=== PATIENT | male | born 1960 | race African-American/Black ===

== ENCOUNTER 2017-05-05 16:27 | Emergency (ER) | payer OTHER, BC ==
[2017-05-05] MEDS ORDERED: NORMAL SALINE 1000 ML 1,000 ML IV ONE (16:54)
--- NOTE | 2017-05-05 16:57 | ER Document Report ---
ED Medical Screen (RME) - General Chief Complaint: High Blood Sugar Stated Complaint: BLOOD PRESSURE ISSUE, DIZZY Time Seen by Provider: 05/05/17 16:54 Mode of Arrival: Ambulatory Information source: Patient TRAVEL OUTSIDE OF THE [place] IN LAST 30 DAYS: No - HPI Patient complains to provider of: elevated BS Onset: Other - Pt has h/o DM but curretnly not on insulin -- [facility] and sent here for evaluation of elevated BS. - Related Data Allergies/Adverse Reactions: No Known Allergies Allergy (Verified 05/05/17 16:28) Past Medical History - Social History Chew tobacco use (# tins/day): No Frequency of alcohol use: Occasional Drug Abuse: None - Past Medical History Cardiac Medical History: Reports: Hx Hypertension - meds x 6 months Denies: Hx Coronary Artery Disease, Hx Heart Attack Pulmonary Medical History: Denies: Hx Asthma, Hx Bronchitis, Hx COPD, Hx Pneumonia Neurological Medical History: Denies: Hx Cerebrovascular Accident, Hx Seizures Renal/ Medical History: Denies: Hx Peritoneal Dialysis Musculoskeltal Medical History: Denies Hx Arthritis Past Surgical History: Denies: Hx Pacemaker - Immunizations Hx Diphtheria, Pertussis, Tetanus Vaccination: No Physical Exam - Vital signs Vitals: Temp Pulse Resp BP Pulse Ox 98.5 F 68 12 118/80 98 05/05/17 16:41 05/05/17 16:41 05/05/17 16:41 05/05/17 16:41 05/05/17 16:41 Course - Vital Signs Vital signs: Temp Pulse Resp BP Pulse Ox 98.5 F 68 12 118/80 98 05/05/17 16:41 05/05/17 16:41 05/05/17 16:41 05/05/17 16:41 05/05/17 16:41
[2017-05-05 17:30] LABS: ABSOLUTE BASOPHILS # (AUTO) 0.1 10^3/uL (0.0-0.2); ABSOLUTE EOSINOPHILS # (AUTO) 0.1 10^3/uL (0.0-0.6); ABSOLUTE LYMPHOCYTES (AUTO) 1.7 10^3/uL (0.5-4.7); ABSOLUTE MONOCYTES (AUTO) 0.6 10^3/uL (0.1-1.4); ABSOLUTE NEUT (AUTO) 3.9 10^3/uL (1.7-8.2); BASOPHILS % (AUTO) 0.9 % (0-2); EOSINOPHILS % (AUTO) 1.8 % (0-6); HEMATOCRIT 42.7 % (37.9-51.0); LYMPHOCYTES % (AUTO) 26.8 % (13-45); MEAN CORPUSCULAR HEMOGLOBIN 28.3 pg (27.0-33.4); MEAN CORPUSCULAR HGB CONC 32.7 g/dL (32.0-36.0); MEAN CORPUSCULAR VOLUME 87 fl (80-97); MONOCYTES % (AUTO) 9.4 % (3-13); PLATELET COUNT 253 10^3/uL (150-450); RED BLOOD COUNT 4.93 10^6/uL (4.35-5.55); RED CELL DISTRIBUTION WIDTH 12.9 % (11.5-14.0); SEGMENTED NEUTROPHILS % (AUTO) 61.1 % (42-78); TOTAL CELLS COUNTED % (AUTO) 100 %; WHITE BLOOD COUNT 6.4 10^3/uL (4.0-10.5)
[2017-05-05 17:41] LABS: ALANINE AMINOTRANSFERASE 40 U/L (21-72); ALBUMIN 4.2 g/dL (3.5-5.0); ALKALINE PHOSPHATASE 106 U/L (38-126); ANION GAP 10 (5-19); ASPARTATE AMINO TRANSFERASE 17 U/L (17-59); BILIRUBIN,DIRECT 0.3 mg/dL (0.0-0.4); BILIRUBIN,TOTAL 0.3 mg/dL (0.2-1.3); BLOOD UREA NITROGEN 14 mg/dL (7-20); CALCIUM 8.9 mg/dL (8.4-10.2); CARBON DIOXIDE 27 mmol/L (22-30); CHLORIDE 98 mmol/L (98-107); GLUCOSE 382 mg/dL (75-110); POTASSIUM 4.4 mmol/L (3.6-5.0); SODIUM 135.1 mmol/L (137-145); TOTAL PROTEIN 6.9 g/dL (6.3-8.2)
[2017-05-05 17:45] LABS: APPEARANCE,URINE CLEAR; BILIRUBIN,URINE NEGATIVE (NEGATIVE); COLOR,URINE STRAW; GLUCOSE, URINE >=500 mg/dL (NEGATIVE); KETONES,URINE 20 mg/dL (NEGATIVE); LEUKOCYTE ESTERASE,URINE NEGATIVE (NEGATIVE); NITRITE,URINE NEGATIVE (NEGATIVE); PROTEIN,URINE NEGATIVE (NEGATIVE); URINE SPECIFIC GRAVITY 1.032; UROBILINOGEN,URINE NEGATIVE mg/dL (<2.0)
[2017-05-05] MEDS ORDERED: METFORMIN HCL 500 MG TABLET PO ONE (19:00)
--- NOTE | 2017-05-05 19:05 | ER Document Report ---
ED General - General Chief Complaint: High Blood Sugar Stated Complaint: BLOOD PRESSURE ISSUE, DIZZY Time Seen by Provider: 05/05/17 16:54 Mode of Arrival: Ambulatory TRAVEL OUTSIDE OF THE [place] IN LAST 30 DAYS: No - Related Data Allergies/Adverse Reactions: No Known Allergies Allergy (Verified 05/05/17 16:28) Past Medical History - General Information source: Patient - Social History Smoking Status: Never Smoker Chew tobacco use (# tins/day): No Frequency of alcohol use: Occasional Drug Abuse: None Patient has suicidal ideation: No Patient has homicidal ideation: No - Past Medical History Cardiac Medical History: Reports: Hx Hypertension - meds x 6 months Denies: Hx Coronary Artery Disease, Hx Heart Attack Pulmonary Medical History: Denies: Hx Asthma, Hx Bronchitis, Hx COPD, Hx Pneumonia Neurological Medical History: Denies: Hx Cerebrovascular Accident, Hx Seizures Endocrine Medical History: Reports: Hx Diabetes Mellitus Type 2 - recent Renal/ Medical History: Denies: Hx Peritoneal Dialysis Musculoskeltal Medical History: Denies Hx Arthritis Past Surgical History: Reports: Hx Bowel Surgery - hernia repair. Denies: Hx Pacemaker - Immunizations Hx Diphtheria, Pertussis, Tetanus Vaccination: No Physical Exam - Vital signs Vitals: Temp Pulse Resp BP Pulse Ox 98.5 F 68 12 118/80 98 05/05/17 16:41 05/05/17 16:41 05/05/17 16:41 05/05/17 16:41 05/05/17 16:41 Course - Vital Signs Vital signs: Temp Pulse Resp BP Pulse Ox 98.5 F 68 12 118/80 98 05/05/17 16:41 05/05/17 16:41 05/05/17 16:41 05/05/17 16:41 05/05/17 16:41 - Laboratory Result Diagrams: 05/05/17 17:07 05/05/17 17:07 Laboratory results interpreted by me: 05/05/17 05/05/17 17:07 17:22 Sodium 135.1 L Glucose 382 H Urine Glucose (UA) >=500 H Urine Ketones 20 H Discharge - Discharge Clinical Impression: Hyperglycemia Diabetes Qualifiers: Diabetes mellitus type: type 2 Diabetes mellitus complication status: without complication Diabetes mellitus jail insulin use: without terminal system operator use Qualified Code(s): E11.9 - Type 2 diabetes mellitus without complications Condition: Good Disposition: HOME, SELF-CARE Instructions: Diabetes ([facility]), Hyperglycemia ([facility]) Additional Instructions: Your laboratory studies today showed I decreased any blood sugar from over 700 to a little bit over 300 at this time. Please take medication as prescribed. I recommend follow-[facility] with [facility] for further diabetic teaching and further testing. Please eat a healthy diet. Return to ER symptoms worsen. More likely her symptoms today were due to a severely elevated blood sugar. Prescriptions: Metformin HCl [Glucophage 500 mg Tablet] 1,000 mg PO BID #60 tablet Referrals: NIDIA DOWNS MD [Primary Care Provider] - Follow up as needed
[2017-05-05 19:25] VITALS: BP 108/83
--- NOTE | 2017-05-06 00:27 | ER Document Report ---
ED General - General Chief Complaint: High Blood Sugar Stated Complaint: BLOOD PRESSURE ISSUE, DIZZY Time Seen by Provider: 05/05/17 16:54 Mode of Arrival: Ambulatory TRAVEL OUTSIDE OF THE [place] IN LAST 30 DAYS: No - HPI Patient complains to provider of: Elevated blood sugar dizziness Notes: Patient was referred to the ER today for dizziness and feeling unwell after he visited the [place] [facility] and was found to have a blood sugar greater than 700. Patient upon my evaluation has received IV fluids stating that his symptoms have improved patient states he has been without his metformin for the last 1-2 months. Patient states he does not watch his diet patient is not aware what his A1c is at this time. Patient resting comfortably denies fevers chills nausea vomiting diarrhea. - Related Data Allergies/Adverse Reactions: No Known Allergies Allergy (Verified 05/05/17 16:28) Past Medical History - General Information source: Patient - Social History Smoking Status: Never Smoker Chew tobacco use (# tins/day): No Frequency of alcohol use: Occasional Drug Abuse: None Family History: Reviewed & Not Pertinent Patient has suicidal ideation: No Patient has homicidal ideation: No - Past Medical History Cardiac Medical History: Reports: Hx Hypertension - meds x 6 months Denies: Hx Coronary Artery Disease, Hx Heart Attack Pulmonary Medical History: Denies: Hx Asthma, Hx Bronchitis, Hx COPD, Hx Pneumonia Neurological Medical History: Denies: Hx Cerebrovascular Accident, Hx Seizures Endocrine Medical History: Reports: Hx Diabetes Mellitus Type 2 - recent Renal/ Medical History: Denies: Hx Peritoneal Dialysis Musculoskeltal Medical History: Denies Hx Arthritis Past Surgical History: Reports: Hx Bowel Surgery - hernia repair. Denies: Hx Pacemaker - Immunizations Hx Diphtheria, Pertussis, Tetanus Vaccination: No Review of Systems - Review of Systems Constitutional: Other - Elevated sugar dizziness EENT: No symptoms reported Cardiovascular: No symptoms reported Respiratory: No symptoms reported Gastrointestinal: No symptoms reported Genitourinary: No symptoms reported Male Genitourinary: No symptoms reported Musculoskeletal: No symptoms reported Skin: No symptoms reported Hematologic/Lymphatic: No symptoms reported Neurological/Psychological: No symptoms reported -: Yes All other systems reviewed and negative Physical Exam - Vital signs Vitals: Temp Pulse Resp BP Pulse Ox 98.5 F 68 12 118/80 98 05/05/17 16:41 05/05/17 16:41 05/05/17 16:41 05/05/17 16:41 05/05/17 16:41 Interpretation: Normal - General General appearance: Appears well, Alert - HEENT Head: Normocephalic, Atraumatic Eyes: Normal Pupils: PERRL - Respiratory Respiratory status: No respiratory distress Chest status: Nontender Breath sounds: Normal Chest palpation: Normal - Cardiovascular Rhythm: Regular Heart sounds: Normal auscultation Murmur: No - Abdominal Inspection: Normal Distension: No distension Bowel sounds: Normal Tenderness: Nontender Organomegaly: No organomegaly - Back Back: Normal, Nontender - Extremities General upper extremity: Normal inspection, Nontender, Normal color, Normal ROM , Normal temperature General lower extremity: Normal inspection, Nontender, Normal color, Normal ROM , Normal temperature, Normal weight bearing. No: Belinda's sign - Neurological Neuro grossly intact: Yes Cognition: Normal Orientation: AAOx4 Corey Coma Scale Eye Opening: Spontaneous Corey Coma Scale Verbal: Oriented Corey Coma Scale Motor: Obeys Commands Corey Coma Scale Total: 15 Speech: Normal Motor strength normal: LUE, RUE, LLE, RLE Sensory: Normal - Psychological Associated symptoms: Normal affect, Normal mood - Skin Skin Temperature: Warm Skin Moisture: Dry Skin Color: Normal Course - Re-evaluation Re-evalutation: 05/06/17 00:26 Patient seen for elevated blood sugar. Will start patient back on his metformin. Patient was encouraged [facility] no signs of HHS or DKA. - Vital Signs Vital signs: Temp Pulse Resp BP Pulse Ox 97.4 F 62 16 108/83 100 05/05/17 19:24 05/05/17 19:24 05/05/17 19:24 05/05/17 19:24 05/05/17 19:24 - Laboratory Result Diagrams: 05/05/17 17:07 05/05/17 17:07 Laboratory results interpreted by me: 05/05/17 05/05/17 17:07 17:22 Sodium 135.1 L Glucose 382 H Urine Glucose (UA) >=500 H Urine Ketones 20 H Discharge - Discharge Clinical Impression: Hyperglycemia Diabetes Qualifiers: Diabetes mellitus type: type 2 Diabetes mellitus complication status: without complication Diabetes mellitus penitentiary insulin use: without terminal operator use Qualified Code(s): E11.9 - Type 2 diabetes mellitus without complications Condition: Good Disposition: HOME, SELF-CARE Instructions: Diabetes ([facility]), Hyperglycemia ([facility]) Additional Instructions: Your laboratory studies today showed I decreased any blood sugar from over 700 to a little bit over 300 at this time. Please take medication as prescribed. I recommend follow-up with your [facility] provider for further diabetic teaching and further testing. Please eat a healthy diet. Return to ER symptoms worsen. More likely her symptoms today were due to a severely elevated blood sugar. Prescriptions: Metformin HCl [Glucophage 500 mg Tablet] 1,000 mg PO BID #60 tablet Forms: Return to Work Referrals: NIDIA DOWNS MD [Primary Care Provider] - Follow up as needed
== END 2017-05-05 19:25 | disposition home or self-care (01) ==
LOC: ER 16:27
DX: E11.65 Type 2 diabetes mellitus with hyperglycemia (principal); R03.0 Elevated blood-pressure reading, without diagnosis of hypertension; R42 Dizziness and giddiness
CPT/HCPCS: 99283; 96360; 36415; 85025; 80053; 81001; J7030

== ENCOUNTER 2017-12-05 08:39 | Emergency (ER) | payer OTHER, BC ==
--- NOTE | 2017-12-05 09:31 | ER Document Report ---
ED Medical Screen (RME) - General Chief Complaint: Chest Pain Stated Complaint: CHEST PAIN Time Seen by Provider: 12/05/17 09:13 Notes: This is a pleasant 57-year-old -[place] male to the emergency department chief complaint of a 4-day history of cough and right-sided chest pain. Has been coughing up a little bit of blood tinged sputum today as well. Hurts to take a deep breath. Does not feel right. No something is wrong. No prior history of DVT or pulmonary embolism. No significant family history. Patient does have a history of diabetes. Does have a history of hypertension but has not been taking anything for his blood pressure I have greeted and performed a rapid initial assessment of this patient. A comprehensive ED assessment and evaluation of the patient, analysis of test results and completion of the medical decision making process will be conducted by additional ED providers. TRAVEL OUTSIDE OF THE [place] IN LAST 30 DAYS: No - Related Data Allergies/Adverse Reactions: No Known Allergies Allergy (Verified 12/05/17 08:41) Past Medical History - Past Medical History Cardiac Medical History: Reports: Hx Hypertension - meds x 6 months Denies: Hx Coronary Artery Disease, Hx Heart Attack Pulmonary Medical History: Denies: Hx Asthma, Hx Bronchitis, Hx COPD, Hx Pneumonia Neurological Medical History: Denies: Hx Cerebrovascular Accident, Hx Seizures Endocrine Medical History: Reports: Hx Diabetes Mellitus Type 2 - recent Renal/ Medical History: Denies: Hx Peritoneal Dialysis Musculoskeltal Medical History: Denies Hx Arthritis Past Surgical History: Reports: Hx Bowel Surgery - hernia repair. Denies: Hx Pacemaker - Immunizations Hx Diphtheria, Pertussis, Tetanus Vaccination: No Review of Systems - Review of Systems Notes: Review of systems positive for the following: Right-sided chest pain, cough, hemoptysis Physical Exam - Vital signs Vitals: Temp Pulse Resp BP Pulse Ox 97.5 F 62 18 117/75 98 12/05/17 08:43 12/05/17 08:43 12/05/17 08:43 12/05/17 08:43 12/05/17 08:43 Interpretation: Normal - Respiratory Respiratory status: No respiratory distress Chest status: Nontender Breath sounds: Normal Chest palpation: Normal - Cardiovascular Rhythm: Regular Heart sounds: Normal auscultation Murmur: No - Abdominal Inspection: Normal Distension: No distension Bowel sounds: Normal Tenderness: Nontender Organomegaly: No organomegaly - Extremities General upper extremity: Normal inspection, Nontender, Normal color, Normal ROM , Normal temperature General lower extremity: Normal inspection, Nontender, Normal color, Normal ROM , Normal temperature, Normal weight bearing. No: Belinda's sign - Skin Skin Temperature: Warm Skin Moisture: Dry Skin Color: Normal Course - Vital Signs Vital signs: Temp Pulse Resp BP Pulse Ox 97.5 F 62 18 117/75 98 12/05/17 08:43 12/05/17 08:43 12/05/17 08:43 12/05/17 08:43 12/05/17 08:43
--- NOTE | 2017-12-05 10:05 | ER Document Report ---
ED General - General Chief Complaint: Chest Pain Stated Complaint: CHEST PAIN Time Seen by Provider: 12/05/17 09:13 TRAVEL OUTSIDE OF THE [place] IN LAST 30 DAYS: No - HPI Notes: Patient is a 57-year-old male that presents to the emergency department for chief complaint of hemoptysis, cough and chest pain. Patient reports a pain on the right side of his chest for the last week. The pain is constant and has not completely gone away over the last week. It is worse with coughing and movement. States it is sharp and nonradiating. There are no relieving factors. He has not tried [id number] medication for pain. He reports he has been coughing for the last month and throat lozenges are not helping. He does take lisinopril for elevated blood pressure. He states 1 week ago he was coughing so hard he almost threw up. He also states a week ago he noticed bright red blood streaking in his sputum. That has not recurred since last week. He denies any exposure to tuberculosis, healthcare facilities were presents. He denies history of DVT/PE, recent surgery, recent travel, cancer, or family history of DVT/PE Past Medical History: Diabetes, hypertension Past Surgical History: Skin grafting Social History: Denies drugs alcohol and tobacco Family History: Reviewed and noncontributory for presenting illness Allergies: Reviewed, see documented allergy list. REVIEW OF SYSTEMS: CONSTITUTIONAL : No fever No chills No diaphoresis No recent illness EENT: No vision changes No congestion No sore throat CARDIOVASCULAR: chest pain No palpitations RESPIRATORY: No shortness of breath cough No difficulty breathing GASTROINTESTINAL: No abdominal pain No nausea No vomiting No diarrhea GENITOURINARY: No dysuria No hematuria No difficulty urinating MUSCULOSKELETAL: No back pain No leg pain No arm pain SKIN: No rashes No lesions LYMPHATIC: No swollen, enlarged glands. NEUROLOGICAL: No lightheadedness No headache No weakness No paresthesias PSYCHIATRIC: No anxiety No depression PHYSICAL EXAMINATION: Vital signs reviewed, nursing noted reviewed. GENERAL: Well-appearing, well-nourished and in no acute distress. HEAD: Atraumatic, normocephalic. EYES: Eyes appear normal, extraocular movements intact, sclera anicteric, conjunctiva are normal. ENT: nares patent, oropharynx clear without exudates. Moist mucous membranes. NECK: Normal range of motion, supple without lymphadenopathy LUNGS: Right basilar rhonchi. No accessory muscle use HEART: Regular rate and rhythm without murmurs ABDOMEN: Soft, nontender, normoactive bowel sounds. No rebound, guarding, or rigidity. No masses appreciated. EXTREMITIES: Nontender, good range of motion, no pitting or edema. NEUROLOGICAL: No focal neurological deficits. Moves all extremities spontaneously Motor and sensory grossly intact on exam. PSYCH: Normal mood, normal affect. SKIN: Warm, Dry, normal turgor, no rashes or lesions noted on exposed skin - Related Data Allergies/Adverse Reactions: No Known Allergies Allergy (Verified 12/05/17 08:41) Past Medical History - Social History Smoking Status: Never Smoker Frequency of alcohol use: None Drug Abuse: None Family History: Reviewed & Not Pertinent Patient has suicidal ideation: No Patient has homicidal ideation: No - Past Medical History Cardiac Medical History: Reports: Hx Hypertension - meds x 6 months Denies: Hx Coronary Artery Disease, Hx Heart Attack Pulmonary Medical History: Denies: Hx Asthma, Hx Bronchitis, Hx COPD, Hx Pneumonia Neurological Medical History: Denies: Hx Cerebrovascular Accident, Hx Seizures Endocrine Medical History: Reports: Hx Diabetes Mellitus Type 2 - recent Renal/ Medical History: Denies: Hx Peritoneal Dialysis Musculoskeletal Medical History: Denies Hx Arthritis Past Surgical History: Reports: Hx Bowel Surgery - hernia repair. Denies: Hx Pacemaker - Immunizations Hx Diphtheria, Pertussis, Tetanus Vaccination: No Review of Systems - Review of Systems Notes: Dictated Physical Exam - Vital signs Vitals: Temp Pulse Resp BP Pulse Ox 97.5 F 62 18 117/75 98 12/05/17 08:43 12/05/17 08:43 12/05/17 08:43 12/05/17 08:43 12/05/17 08:43 - Notes Notes: Dictated Course - Re-evaluation Re-evalutation: 12/05/17 10:48 Vitals reviewed. Nursing notes reviewed. Patient afebrile and nontoxic appearing. EKG no dysrhythmia or ischemia. Patient has a negative d-dimer and is low risk for pulmonary embolism which I clinically do not suspect. Chest x- ray shows no pneumonia and he has no leukocytosis. Patient symptoms likely related to bronchitis. He was told that since his cough is been ongoing for a month he should discuss changing his lisinopril to a different medication with his primary care provider. For now he will continue taking all medications as prescribed by his PCP. He will return to the emergency room for any new or worsening symptoms. Discharged home in stable condition. Laboratory 12/05/17 12/05/17 12/05/17 09:48 09:48 09:48 WBC 4.4 RBC 4.91 Hgb 14.1 Hct 42.4 MCV 86 MCH 28.8 MCHC 33.3 RDW 13.6 Plt Count 207 Seg Neutrophils % 55.8 Lymphocytes % 31.6 Monocytes % 8.8 Eosinophils % 3.5 Basophils % 0.3 Absolute Neutrophils 2.4 Absolute Lymphocytes 1.4 Absolute Monocytes 0.4 Absolute Eosinophils 0.2 Absolute Basophils 0.0 D-Dimer Sodium 139.7 Potassium 4.5 Chloride 102 Carbon Dioxide 30 Anion Gap 8 BUN 16 Creatinine 0.86 Est GFR ( Amer) > 60 Est GFR (Non-Af Amer) > 60 Glucose 121 H Calcium 9.2 Total Bilirubin 0.5 Direct Bilirubin 0.3 Neonat Total Bilirubin Not Reportable Neonat Direct Bilirubin Not Reportable Neonat Indirect Bili Not Reportable AST 21 ALT 29 Alkaline Phosphatase 77 Troponin I < 0.012 Total Protein 7.3 Albumin 4.1 12/05/17 09:48 WBC RBC Hgb Hct MCV MCH MCHC RDW Plt Count Seg Neutrophils % Lymphocytes % Monocytes % Eosinophils % Basophils % Absolute Neutrophils Absolute Lymphocytes Absolute Monocytes Absolute Eosinophils Absolute Basophils D-Dimer < 0.27 Sodium Potassium Chloride Carbon Dioxide Anion Gap BUN Creatinine Est GFR ( Amer) Est GFR (Non-Af Amer) Glucose Calcium Total Bilirubin Direct Bilirubin Neonat Total Bilirubin Neonat Direct Bilirubin Neonat Indirect Bili AST ALT Alkaline Phosphatase Troponin I Total Protein Albumin Chest X-Ray 12/05/17 09:37 IMPRESSION: NO ACUTE RADIOGRAPHIC FINDING IN THE CHEST. 12/05/17 10:48 - Vital Signs Vital signs: Temp Pulse Resp BP Pulse Ox 97.5 F 62 18 117/75 98 12/05/17 08:43 12/05/17 08:43 12/05/17 08:43 12/05/17 08:43 12/05/17 08:43 - Laboratory Result Diagrams: 12/05/17 09:48 12/05/17 09:48 Laboratory results interpreted by me: 12/05/17 09:48 Glucose 121 H - EKG Interpretation by Me Additional EKG results interpreted by me: 12/05/17 10:05 0 849: Normal sinus rhythm, rate 64, normal axis, no ectopy, no ST elevation, diffuse T-wave flattening with T-wave inversion V3 V4 V5 Discharge - Discharge Clinical Impression: Atypical chest pain, Bronchitis, Hemoptysis Condition: Stable Disposition: HOME, SELF-CARE Instructions: Chest Wall Pain ([facility]), Bronchitis ([facility]), Family Physicians / Practices Additional Instructions: Please return to the emergency department if you have any worsening, or concern of your symptoms. Please return to the emergency department if you develop chest pain, difficulty breathing, severe abdominal pain, or ongoing vomiting. Please follow-up with your primary care physician in 2-3 days and any other recommended physicians. If prescribed, take all medications as directed. If you have any questions or concerns do not hesitate to return the emergency department for evaluation. []
[2017-12-05 10:07] LABS: ABSOLUTE EOSINOPHILS # (AUTO) 0.2 10^3/uL (0.0-0.6); ABSOLUTE LYMPHOCYTES (AUTO) 1.4 10^3/uL (0.5-4.7); ABSOLUTE MONOCYTES (AUTO) 0.4 10^3/uL (0.1-1.4); ABSOLUTE NEUT (AUTO) 2.4 10^3/uL (1.7-8.2); BASOPHILS % (AUTO) 0.3 % (0-2); EOSINOPHILS % (AUTO) 3.5 % (0-6); HEMATOCRIT 42.4 % (37.9-51.0); HEMOGLOBIN 14.1 g/dL (13.5-17.0); LYMPHOCYTES % (AUTO) 31.6 % (13-45); MEAN CORPUSCULAR HEMOGLOBIN 28.8 pg (27.0-33.4); MEAN CORPUSCULAR HGB CONC 33.3 g/dL (32.0-36.0); MEAN CORPUSCULAR VOLUME 86 fl (80-97); MONOCYTES % (AUTO) 8.8 % (3-13); PLATELET COUNT 207 10^3/uL (150-450); RED BLOOD COUNT 4.91 10^6/uL (4.35-5.55); RED CELL DISTRIBUTION WIDTH 13.6 % (11.5-14.0); SEGMENTED NEUTROPHILS % (AUTO) 55.8 % (42-78); TOTAL CELLS COUNTED % (AUTO) 100 %; WHITE BLOOD COUNT 4.4 10^3/uL (4.0-10.5)
--- NOTE | 2017-12-05 10:09 | RADIOLOGY REPORT (SQ) ---
EXAM DESCRIPTION: CHEST 2 VIEWS COMPLETED DATE/TIME: 12/05/2017 9:59 am REASON FOR STUDY: chest pain COMPARISON: None. EXAM PARAMETERS: NUMBER OF VIEWS: two views TECHNIQUE: Digital Frontal and Lateral radiographic views of the chest acquired. RADIATION DOSE: NA LIMITATIONS: none FINDINGS: LUNGS AND PLEURA: No opacities, masses or pneumothorax. No pleural effusion. MEDIASTINUM AND HILAR STRUCTURES: No masses or contour abnormalities. HEART AND VASCULAR STRUCTURES: Heart normal size. No evidence for failure. BONES: No acute findings. HARDWARE: None in the chest. OTHER: No other significant finding. IMPRESSION: NO ACUTE RADIOGRAPHIC FINDING IN THE CHEST. TECHNICAL DOCUMENTATION: JOB ID: [id number]- All Rights Reserved Reading location - IP/workstation name: [email or web address]
[2017-12-05 10:27] LABS: ALANINE AMINOTRANSFERASE 29 U/L (21-72); ALBUMIN 4.1 g/dL (3.5-5.0); ALKALINE PHOSPHATASE 77 U/L (38-126); ANION GAP 8 (5-19); ASPARTATE AMINO TRANSFERASE 21 U/L (17-59); BILIRUBIN,DIRECT 0.3 mg/dL (0.0-0.4); BILIRUBIN,TOTAL 0.5 mg/dL (0.2-1.3); BLOOD UREA NITROGEN 16 mg/dL (7-20); CALCIUM 9.2 mg/dL (8.4-10.2); CARBON DIOXIDE 30 mmol/L (22-30); CHLORIDE 102 mmol/L (98-107); GLUCOSE 121 mg/dL (75-110); POTASSIUM 4.5 mmol/L (3.6-5.0); SODIUM 139.7 mmol/L (137-145); TOTAL PROTEIN 7.3 g/dL (6.3-8.2)
[2017-12-05 11:34] VITALS: BP 118/74
--- NOTE | 2017-12-05 16:59 | EKG REPORT ---
SEVERITY:- ABNORMAL ECG - SINUS RHYTHM LOW VOLTAGE IN FRONTAL LEADS NONSPECIFIC T ABNORMALITIES, DIFFUSE LEADS : Confirmed by: Chinyere Sorenson MD 05-Dec-2017 16:58:39
== END 2017-12-05 11:34 | disposition home or self-care (01) ==
LOC: ER 08:39
DX: J40 Bronchitis, not specified as acute or chronic (principal); R07.9 Chest pain, unspecified; R04.2 Hemoptysis; R07.89 Other chest pain; I10 Essential (primary) hypertension; Z79.899 Other long term (current) drug therapy; E11.9 Type 2 diabetes mellitus without complications
CPT/HCPCS: 36415; 71046; 80053; 84484; 85025; 85379; 93005; 93010; 99285

== ENCOUNTER 2018-12-06 16:54 | Observation (INO) | payer OTHER, BC ==
[2018-12-06] MEDS ORDERED: ASPIRIN 81 MG TABLET, CHEWABLE PO ONE (17:29)
--- NOTE | 2018-12-06 17:33 | ER Document Report ---
ED Medical Screen (RME) - General Chief Complaint: Chest Pain Stated Complaint: CHEST PAIN Time Seen by Provider: 12/06/18 17:26 Mode of Arrival: Ambulatory Information source: Patient Notes: This 58-year-old male with history of diabetes presents emergency department with complaints of left sided chest pain that started yesterday and his left arm started going numb today. Patient reports he does not check his sugars he has been urinating frequently and increased thirst. Denies history of stroke denies history of cardiac disease. No fever vomiting or diarrhea. Accu-Chek read is high. I have greeted and performed a rapid initial assessment of this patient. A comprehensive ED assessment and evaluation of the patient, analysis of test results and completion of the medical decision making process will be conducted by additional ED providers. Dictation of this chart was performed using voice recognition software; therefore, there may be some unintended grammatical errors. TRAVEL OUTSIDE OF THE [place] IN LAST 30 DAYS: No - Related Data Allergies/Adverse Reactions: No Known Allergies Allergy (Verified 12/05/17 08:41) Past Medical History - Past Medical History Cardiac Medical History: Reports: Hx Hypertension - meds x 6 months Denies: Hx Coronary Artery Disease, Hx Heart Attack Pulmonary Medical History: Denies: Hx Asthma, Hx Bronchitis, Hx COPD, Hx Pneumonia Neurological Medical History: Denies: Hx Cerebrovascular Accident, Hx Seizures Endocrine Medical History: Reports: Hx Diabetes Mellitus Type 2 - recent Renal/ Medical History: Denies: Hx Peritoneal Dialysis Musculoskeltal Medical History: Denies Hx Arthritis Past Surgical History: Reports: Hx Bowel Surgery - hernia repair. Denies: Hx Pacemaker - Immunizations Hx Diphtheria, Pertussis, Tetanus Vaccination: No Physical Exam - Vital signs Vitals: Temp Pulse Resp BP Pulse Ox 97.5 F 80 21 H 132/74 H 96 12/06/18 17:09 12/06/18 17:09 12/06/18 17:09 12/06/18 17:09 12/06/18 17:09 Course - Vital Signs Vital signs: Temp Pulse Resp BP Pulse Ox 97.5 F 80 21 H 132/74 H 96 12/06/18 17:09 12/06/18 17:09 12/06/18 17:09 12/06/18 17:09 12/06/18 17:09
[2018-12-06] MEDS ORDERED: NORMAL SALINE 1000 ML 1,000 ML IV ONE (17:42)
--- NOTE | 2018-12-06 18:15 | RADIOLOGY REPORT (SQ) ---
EXAM DESCRIPTION: CHEST 2 VIEWS COMPLETED DATE/TIME: 12/06/2018 6:01 pm REASON FOR STUDY: cp COMPARISON: 12/05/2017 TECHNIQUE: Frontal and lateral radiographic views of the chest acquired. NUMBER OF VIEWS: Two view. LIMITATIONS: None. FINDINGS: LUNGS AND PLEURA: No pneumothorax. No consolidation or pleural effusion. MEDIASTINUM AND HILAR STRUCTURES: Stable. HEART AND VASCULAR STRUCTURES: Stable. BONES: No acute findings. HARDWARE: None in the chest. OTHER: No other significant finding. IMPRESSION: NO ACUTE FINDINGS. TECHNICAL DOCUMENTATION: JOB ID: [id number] [place]-72 2010 [employer]- All Rights Reserved Reading location - IP/workstation name: [email or web address]
--- NOTE | 2018-12-06 18:18 | RADIOLOGY REPORT (SQ) ---
EXAM DESCRIPTION: CT HEAD WITHOUT COMPLETED DATE/TIME: 12/06/2018 6:03 pm REASON FOR STUDY: left arm numb COMPARISON: None. TECHNIQUE: Axial images acquired through the brain without intravenous contrast. Images reviewed wit h bone, brain and subdural windows. Images stored on PACS. All CT scanners at this facility use dose modulation, iterative reconstruction, and/or weight based d osing when appropriate to reduce radiation dose to as low as reasonably achievable (ALARA). [facility]: Dose Right [facility]: CareDose [facility]: Dose Right [facility]: Teradose 4D [facility]: Smart Lab21 RADIATION DOSE: CT Rad equipment meets quality standard of care and radiation dose reduction techniq ues were employed. CTDIvol: 53.2 mGy. DLP: 1070 mGy-cm.. LIMITATIONS: None. FINDINGS: VENTRICLES: Normal size and contour. CEREBRUM: No masses. No hemorrhage. No midline shift. Age appropriate white matter. No evidence for a cute infarction. CEREBELLUM: No masses. No hemorrhage. No alteration of density. No evidence for acute infarction. EXTRA-AXIAL SPACES: No fluid collections. ORBITS AND GLOBE: No intra- or extraconal masses. Normal contour of globe without masses. CALVARIUM: No fracture. PARANASAL SINUSES: No fluid levels. Right maxillary sinus mucous retention cyst. . SOFT TISSUES: No mass or hematoma. OTHER: No other significant finding. IMPRESSION: NO ACUTE INTRACRANIAL FINDINGS. EVIDENCE OF ACUTE STROKE: NO. TECHNICAL DOCUMENTATION: JOB ID: [id number] [place]-72 Quality ID # [id number]: Final reports with documentation of one or more dose reduction techniques (e.g., Au tomated exposure control, adjustment of the mA and/or kV according to patient size, use of iterative reconstruction technique) 2010 [employer]- All Rights Reserved Reading location - IP/workstation name: [email or web address]
[2018-12-06 18:25] LABS: VENOUS BLOOD BASE EXCESS 0.2 mmol/L; VENOUS BLOOD HCO3 25.9 mmol/L (20-32); VENOUS BLOOD PCO2 45.8 mmHg (35-63); VENOUS BLOOD PH 7.37 (7.30-7.42)
[2018-12-06 18:31] LABS: ABSOLUTE MONOCYTES (AUTO) 0.4 10^3/uL (0.1-1.4); ABSOLUTE NEUT (AUTO) 4.6 10^3/uL (1.7-8.2); BASOPHILS % (AUTO) 0.7 % (0-2); EOSINOPHILS % (AUTO) 0.7 % (0-6); HEMATOCRIT 41.8 % (37.9-51.0); HEMOGLOBIN 13.8 g/dL (13.5-17.0); LYMPHOCYTES % (AUTO) 16.5 % (13-45); MEAN CORPUSCULAR HEMOGLOBIN 28.4 pg (27.0-33.4); MEAN CORPUSCULAR HGB CONC 32.9 g/dL (32.0-36.0); MEAN CORPUSCULAR VOLUME 86 fl (80-97); MONOCYTES % (AUTO) 6.5 % (3-13); PLATELET COUNT 210 10^3/uL (150-450); RED BLOOD COUNT 4.85 10^6/uL (4.35-5.55); RED CELL DISTRIBUTION WIDTH 12.7 % (11.5-14.0); SEGMENTED NEUTROPHILS % (AUTO) 75.6 % (42-78); TOTAL CELLS COUNTED % (AUTO) 100 %; WHITE BLOOD COUNT 6.1 10^3/uL (4.0-10.5)
[2018-12-06 18:47] LABS: ALBUMIN 4.2 g/dL (3.5-5.0); ALKALINE PHOSPHATASE 107 U/L (38-126); ANION GAP 12 (5-19); ASPARTATE AMINO TRANSFERASE 25 U/L (17-59); BILIRUBIN,DIRECT 0.2 mg/dL (0.0-0.4); BILIRUBIN,TOTAL 0.3 mg/dL (0.2-1.3); BLOOD UREA NITROGEN 19 mg/dL (7-20); CALCIUM 9.6 mg/dL (8.4-10.2); CARBON DIOXIDE 26 mmol/L (22-30); CHLORIDE 93 mmol/L (98-107); CREATINE KINASE 365 U/L (55-170); POTASSIUM 5.1 mmol/L (3.6-5.0)
[2018-12-06 18:59] LABS: CREATINE KINASE MB 3.52 ng/mL (<4.55); TROPONIN I < 0.012 ng/mL
[2018-12-06 19:02] LABS: GLUCOSE 662 mg/dL (75-110)
[2018-12-06] MEDS ORDERED: RINGERS SOLUTION,LACTATED 1,000 ML IV ONE (19:16)
[2018-12-06] MEDS ORDERED: INSULIN LISPRO 100 UNIT/ML 3 ML VIAL SUBCUT ONE (19:16)
--- NOTE | 2018-12-06 19:18 | ER Document Report ---
ED General - General Chief Complaint: Chest Pain Stated Complaint: CHEST PAIN Time Seen by Provider: 12/06/18 17:26 Primary Care Provider: JUSTIN,TEENA [Primary Care Provider] - Follow up as needed Mode of Arrival: Ambulatory TRAVEL OUTSIDE OF THE [place] IN LAST 30 DAYS: No - HPI Notes: 58-year-old male noncompliant diabetic who presents with multiple complaints. Patient describes a week or more of polyuria, mild polydipsia. Checked his blood sugar this morning it was "high". States he is been noncompliant with his glipizide and his metformin. He also describes some chest pain that started yesterday evening, left anterolateral chest, substernal and achy, lasted mostly night and then resolved sometime today, transient left arm numbness. Moderate intensity, gradual onset, nonradiating. No other modifying factors, no other associated symptoms, no other provocative or palliative factors. - Related Data Allergies/Adverse Reactions: No Known Allergies Allergy (Verified 12/05/17 08:41) Past Medical History - General Information source: Patient - Social History Smoking Status: Never Smoker Chew tobacco use (# tins/day): No Frequency of alcohol use: None Drug Abuse: None Family History: Reviewed & Not Pertinent Patient has suicidal ideation: No Patient has homicidal ideation: No - Past Medical History Cardiac Medical History: Reports: Hx Hypertension - meds x 6 months Denies: Hx Coronary Artery Disease, Hx Heart Attack Pulmonary Medical History: Denies: Hx Asthma, Hx Bronchitis, Hx COPD, Hx Pneumonia Neurological Medical History: Denies: Hx Cerebrovascular Accident, Hx Seizures Endocrine Medical History: Reports: Hx Diabetes Mellitus Type 2 - recent Renal/ Medical History: Denies: Hx Peritoneal Dialysis Musculoskeletal Medical History: Denies Hx Arthritis Past Surgical History: Reports: Hx Bowel Surgery - hernia repair. Denies: Hx Pa cemaker - Immunizations Hx Diphtheria, Pertussis, Tetanus Vaccination: No Review of Systems - Review of Systems Notes: Review of systems as in the history of present illness, otherwise negative x 10 systems. Physical Exam - Vital signs Vitals: Temp Pulse Resp BP Pulse Ox 97.5 F 80 21 H 132/74 H 96 12/06/18 17:09 12/06/18 17:09 12/06/18 17:09 12/06/18 17:12/06/18 17:09 - Notes Notes: General: Well developed . HEENT: Normocephalic, atraumatic. Pupils equal round reactive to light. No JVD. Chest: No trauma. Respiratory: Good air exchange, normal excursion. Cardiac: Regular rhythm. No murmurs or gallops. Abdomen: Soft, benign. Nondistended. Nontender. Back: No asymmetry or gross abnormality. Motor: Grossly normal power and tone. Neurologic: Alert, nonfocal. Cranial nerves II-12 are intact. Sensation intact. Sensation intact in the upper and lower extremities. DTRs 1+ symmetric. No cerebellar signs. Strength intact and symmetric. [place] nerves II 12 are intact. No clonus. No visual field deficit. Vascular: Well perfused. Normal peripheral pulses. Skin: No petechiae or purpura. Course - Re-evaluation Re-evalutation: 12/06/18 19:18 58-year-old male with the after mentioned symptoms, certainly increased risk for hyperglycemia, dehydration, possible associated DKA. His chest pain is also a concern given his underlying risk factors. Additionally, his left arm numbness may be related to chest pain versus [employer] ischemia. Plan proceed with broad laboratory evaluation, EKG, x-ray, reassess. 12/06/18 20:58 Labs reviewed, CBC unremarkable, chemistries unremarkable the exception of marked elevated glucose at 662, normal bicarb, no significant anion gap elevation. troponin normal. Chest x-ray unremarkable. CT imaging of the brain unremarkable. Patient has remained pain-free throughout his ED course. It is unclear whether his left arm numbness was related to TIA versus radiation and presentation from his chest pain. Of note, he has a heart score of 6 and has substantial risk factors for coronary artery disease. Given his symptomology, we will proceed wi th admission to the hospital service for rule out and possible further provocative risk stratification. Serial exams and reevaluate. He received injection Humalog and IV fluids with substantial decrease in his blood glucose. 12/06/18 20:59 - Vital Signs Vital signs: Temp Pulse Resp BP Pulse Ox 97.5 F 80 21 H 132/74 H 96 12/06/18 17:09 12/06/18 17:09 12/06/18 17:09 12/06/18 17:09 12/06/18 17:09 - Laboratory Result Diagrams: 12/06/18 17:52 12/06/18 17:52 Laboratory results interpreted by me: 12/06/18 12/06/18 17:52 20:33 Sodium 130.5 L Potassium 5.1 H Chloride 93 L Glucose 662 H* POC Glucose 352 H Creatine Kinase 365 H - EKG Interpretation by Me EKG shows normal: Sinus rhythm, [place], QRS Complexes - Nonspecific ST-T changes Discharge - Discharge Clinical Impression: Hyperglycemia Chest pain Qualifiers: Chest pain type: other chest pain Qualified Code(s): R07.89 - Other chest pain Condition: Serious Disposition: ADMITTED OBSERVATION Admitting Provider: Je (Hospitalist) Unit Admitted: Telemetry [facility]errals: [facility] [[facility] Care [facility]] - Follow up as needed
[2018-12-06] MEDS ORDERED: LACTULOSE SYRUP 20 GM/30 ML UDCUP PO ONE (21:05)
[2018-12-06] MEDS ORDERED: DEXTROSE 40% GEL 15 GM TUBE PO PRN ×2 (21:06)
[2018-12-06] MEDS ORDERED: NITROGLYCERIN 0.4 MG/TAB 25 TAB/BOTTLE SL PRN (21:06)
[2018-12-06] MEDS ORDERED: DEXTROSE 50%-WATER 25 GM/50 ML DISP.SYRIN IV PRN ×2 (21:06)
[2018-12-06] MEDS ORDERED: GLUCAGON,HUMAN RECOMB 1 MG INJ IM PRN (21:06)
[2018-12-06] MEDS ORDERED: ACETAMINOPHEN 325 MG TABLET PO PRN (21:06)
[2018-12-06] MEDS ORDERED: NORMAL SALINE 1000 ML 1,000 ML IV SCH (21:15)
[2018-12-06] MEDS ORDERED: NORMAL SALINE 1000 ML 1,000 ML IV PRN (21:15)
--- NOTE | 2018-12-06 22:31 | RADIOLOGY REPORT (SQ) ---
EXAM DESCRIPTION: XR ABDOMEN 2 VIEWS SUPINE ERECT COMPLETED DATE/TME: 12/06/2018 21:04 CLINICAL HISTORY: 58 years, Male, abd pain COMPARISON: None. NUMBER OF VIEWS: Supine and erect views of the abdomen TECHNIQUE: Supine and erect views of the abdomen LIMITATIONS: None FINDINGS: Nonspecific, nonobstructive bowel gas pattern. Gas and stool throughout colon. Mildly dilated air-filled loop of bowel in the central abdomen could reflect focal ileus. No free air IMPRESSION: Possible focal ileus. Gas and stool in the colon. No free air copyright 2010 [employer]- All Rights Reserved
[2018-12-06] MEDS: ATORVASTATIN CALCIUM 80 MG TABLET PO SCH (22:35)
[2018-12-07] MEDS: INSULIN LISPRO 100 UNIT/ML 3 ML VIAL SUBCUT SCH ×4 (01:08→17:05)
[2018-12-07] MEDS ORDERED: POTASSI CL 20 MEQ/D5-1/2NS 1L 1,000 ML IV PRN (01:11)
[2018-12-07] MEDS ORDERED: LACTULOSE SYRUP 20 GM/30 ML UDCUP PO ONE (03:13)
[2018-12-07] MEDS ORDERED: NA PHOS,M-B/NA PHOS,DI-BA (ADULT) 133 ML ENEMA PR ONE (03:13)
[2018-12-07 04:16] LABS: ANION GAP 8 (5-19); BLOOD UREA NITROGEN 16 mg/dL (7-20); CALCIUM 8.9 mg/dL (8.4-10.2); CARBON DIOXIDE 28 mmol/L (22-30); CHLORIDE 103 mmol/L (98-107); GLUCOSE 98 mg/dL (75-110)
[2018-12-07 04:25] LABS: POTASSIUM 3.7 mmol/L (3.6-5.0)
--- NOTE | 2018-12-07 05:42 | PDOC H&P ---
History of Present Illness Admission Date/PCP: 12/06/18 21:[facility] Patient complains of: Chest and abdominal pain History of Present Illness: RAS REYES is a 58 year old male with a past medical history of hypertension, diabetes, dyslipidemia and lifestyle and medication noncompliance. He presents with a vague chest and abdominal pain over the last 48, 72 hours. He admits pressure like discomfort of 2 out of 5 intensity occurring a with activity such as walking radiates to the left arm but is associated with abdominal discomfort, polyuria, polydipsia, weight loss and excessive flatulence. He denies palpitations, shortness of breath, diaphoresis but has some nausea without vomiting. In the emergency room his work-up thus far is unremarkable EKG is unchanged from previous with lateral T wave inversion. His abdomen is distended with without guarding. He denies recent change in medications he denies exacerbating factors he is unable to recall his last bowel movement. Cardiolite stress test within the last 24 months is reportedly unrem arkable. He has never checked his blood sugar. Past Medical History Cardiac Medical History: Reports: Hypertension - meds x 6 months Denies: Coronary Artery Disease, Myocardial Infarction Pulmonary Medical History: Denies: Asthma, Bronchitis, Chronic Obstructive Pulmonary Disease (COPD), Pneumonia Neurological Medical History: Denies: Seizures Endocrine Medical History: Reports: Diabetes Mellitus Type 2 - recent Musculoskeltal Medical History: Denies: Arthritis Psychiatric Medical History: Reports: None Hematology: Denies: Anemia Past Surgical History Past Surgical History: Reports: None Denies: Pacemaker Social History Information Source: Patient, [facility] Records Lives with: Spouse/Significant other Smoking Status: Never Smoker Frequency of Alcohol Use: None Drugs: None - Advance Directive Resuscitation Status: Full Code Family History Family History: COPD, DM, Hyperlipidemia Parental Family History Reviewed: Yes Children Family History Reviewed: Yes Sibling(s) Family History Reviewed.: Yes Medication/Allergy Home Medications: Metformin HCl [Glucophage 500 mg Tablet] 1,000 mg PO BID #60 tablet 05/05/17 Allergies/Adverse Reactions: No Known Allergies Allergy (Verified 12/05/17 08:41) Review of Systems Constitutional: PRESENT: as per HPI, fatigue, weakness, weight loss. ABSENT: fever(s), headache(s) Eyes: ABSENT: visual disturbances Ears: ABSENT: hearing changes Cardiovascular: PRESENT: as per HPI, dyspnea on exertion. ABSENT: edema, orthropnea, palpitations Respiratory: ABSENT: cough, hemoptysis Gastrointestinal: PRESENT: as per HPI, abdominal pain, bloating, constipation, nausea. ABSENT: vomiting Genitourinary: ABSENT: dysuria, hematuria Musculoskeletal: ABSENT: joint swelling Integumentary: ABSENT: rash, wounds Neurological: ABSENT: abnormal gait, abnormal speech, confusion, dizziness, foc al weakness, syncope Psychiatric: ABSENT: anxiety, depression, homidical ideation, suicidal ideation Endocrine: PRESENT: as per HPI, polydipsia, polyphagia, polyuria Hematologic/Lymphatic: ABSENT: easy bleeding, easy bruising Physical Exam Vital Signs: Temp Pulse Resp BP Pulse Ox 97.9 F 80 19 121/77 100 12/07/18 02:00 12/06/18 17:09 12/07/18 04:01 12/07/18 04:01 12/07/18 04:01 Intake & Output 12/05/18 12/06/18 12/07/18 11:59 11:59 11:59 Intake Total 2537 Balance 2537 Weight 101.6 kg General appearance: PRESENT: no acute distress, cooperative, well-developed, well-nourished Head exam: PRESENT: atraumatic, normocephalic Eye exam: PRESENT: conjunctiva pink, EOMI, PERRLA. ABSENT: scleral icterus Ear exam: PRESENT: normal external ear exam Mouth exam: PRESENT: moist, tongue midline Neck exam: ABSENT: carotid bruit, JVD, lymphadenopathy, thyromegaly Respiratory exam: PRESENT: clear to auscultation tracy. ABSENT: rales, rhonchi, wheezes Cardiovascular exam: PRESENT: RRR. ABSENT: diastolic murmur, rubs, systolic murmur Pulses: PRESENT: normal dorsalis pedis pul Vascular exam: PRESENT: normal capillary refill GI/Abdominal exam: PRESENT: distended, hypoactive bowel sounds, normal bowel sounds, soft. ABSENT: guarding, mass, organolmegaly, rebound, tenderness Rectal exam: PRESENT: deferred Extremities exam: PRESENT: full ROM. ABSENT: calf tenderness, clubbing, pedal edema Neurological exam: PRESENT: alert, awake, oriented to person, oriented to place, oriented to time, oriented to situation, CN II-XII grossly intact. ABSENT: motor sensory deficit Psychiatric exam: PRESENT: appropriate affect, normal mood. ABSENT: homicidal ideation, suicidal ideation Skin exam: PRESENT: dry, intact, warm. ABSENT: cyanosis, rash Results Laboratory Results: 12/06/18 17:52 12/07/18 03:26 12/06/18 12/06/18 12/06/18 17:52 17:52 17:52 WBC 6.1 RBC 4.85 Hgb 13.8 Hct 41.8 MCV 86 MCH 28.4 MCHC 32.9 RDW 12.7 Plt Count 210 Seg Neutrophils % 75.6 VBG pH 7.37 VBG pCO2 45.8 VBG HCO3 25.9 VBG Base Excess 0.2 Sodium 130.5 L Potassium 5.1 H Chloride 93 L Carbon Dioxide 26 Anion Gap 12 BUN 19 Creatinine 1.01 Est GFR ( Amer) > 60 Glucose 662 H* Calcium 9.6 Total Bilirubin 0.3 AST 25 Alkaline Phosphatase 107 Total Protein 7.0 Albumin 4.2 TSH 12/06/18 12/07/18 21:29 03:26 WBC RBC Hgb Hct MCV MCH MCHC RDW Plt Count Seg Neutrophils % VBG pH VBG pCO2 VBG HCO3 VBG Base Excess Sodium 139.2 Potassium 3.7 D Chloride 103 Carbon Dioxide 28 Anion Gap 8 BUN 16 Creatinine 0.73 Est GFR ( Amer) > 60 Glucose 98 Calcium 8.9 Total Bilirubin AST Alkaline Phosphatase Total Protein Albumin TSH 0.71 12/06/18 12/06/18 12/06/18 17:52 17:52 21:29 Creatine Kinase 365 H CK-MB (CK-2) 3.52 Troponin I < 0.012 < 0.012 12/07/18 03:26 Creatine Kinase CK-MB (CK-2) Troponin I < 0.012 Impressions: Chest X-Ray 12/06/18 17:29 IMPRESSION: NO ACUTE FINDINGS. Head CT 12/06/18 17:33 IMPRESSION: NO ACUTE INTRACRANIAL FINDINGS. EVIDENCE OF ACUTE STROKE: NO. Abdomen X-Ray 12/06/18 21:04 IMPRESSION: Possible focal ileus. Gas and stool in the colon. No free air copyright 2010 [employer]- All Rights Reserved Assessment and Plan - Diagnosis (1) Atypical chest pain Is this a current diagnosis for this admission?: Yes Plan: Atypical chest pain though the patient's pain is atypical there are multiple risk factors for coronary artery disease and subsequently will observe and evaluation of acute coronary syndrome versus coronary artery disease with anginal equivalents. Cardiac monitoring blood pressure Q6 hours ,TSH, lipid profile, serial cardiac enzymes and cardiac stress test (2) Fecal impaction Is this a current diagnosis for this admission?: Yes Plan: Lactulose and Fleet enema, education for bowel regiment (3) Dyslipidemia Is this a current diagnosis for this admission?: Yes Plan: Statin ordered, follow-up lipid profile (4) Diabetes Is this a current diagnosis for this admission?: Yes Plan: Anticipate poor control given history, follow-up A1c, insulin ordered. Will require extensive education (5) Hypertension Is this a current diagnosis for this admission?: Yes Plan: ALEX inhibitor, nitrates ordered (6) Obesity Is this a current diagnosis for this admission?: Yes Plan: Follow-up TSH - Time Time Spent with patient: 25-34 minutes
[2018-12-07] MEDS ORDERED: REGADENOSON INJ 0.4 MG/5 ML DISP.SYRIN IV ONE (13:29)
[2018-12-07] MEDS ORDERED: DEXTROSE 50%-WATER 25 GM/50 ML DISP.SYRIN IV PRN ×4 (18:13→18:14)
[2018-12-07] MEDS ORDERED: GLUCAGON,HUMAN RECOMB 1 MG INJ IM PRN ×2 (18:13→18:14)
[2018-12-07] MEDS ORDERED: DEXTROSE 40% GEL 15 GM TUBE PO PRN ×4 (18:13→18:14)
[2018-12-07 21:58] LABS: CHOLESTEROL 176.95 mg/dL (0-200); TRIGLYCERIDES 93 mg/dL (<150)
[2018-12-07] MEDS ORDERED: INSULIN GLARGINE,HUM.REC.ANLOG 1,000 UNIT/10 ML VIAL SUBCUT SCH (22:00)
[2018-12-07] MEDS ORDERED: GABAPENTIN 300 MG CAPSULE PO SCH (22:00)
[2018-12-07 22:09] LABS: DIRECT LDL 124 mg/dL (<100)
[2018-12-07] MEDS: ATORVASTATIN CALCIUM 80 MG TABLET PO SCH (22:11)
--- NOTE | 2018-12-08 00:17 | DRAGON STRESS TEST REPORT ---
Intravenous Lexiscan Cardiolite stress test using single photon emmision computerized tomography. Date of procedure: 12/07/2018. Ordering Provider: Dr. Gume Wooten. Patient's status In Patient. Indication: Chest pain. Coronary risk factors: Age, diabetes mellitus, hypertension, and dyslipidemia. Resting EKG: Sinus Rhythm. Diffuse nonspecific T inversion. Stress EKG: No changes of ischemia. The patient had no chest pain discomfort, and there were no arrhythmias seen. Reason for termination: Protocol. Conclusions: Normal EKG and hemodynamic response to IV Lexiscan. Nuclear data: At rest the patient was given 14.89 millicuries of technetium 99m sestamibi injected intravenously. As per protocol rest non gated SPECT images were obtained. Subsequently the patient was given intravenous Lexiscan at a dose of 0.4 mg in 5 mL intravenously, followed by flush with normal saline. Subsequently the stress dose of 44.0 millicuries of technetium 99m sestamibi was injected intravenously. As per protocol stress gated images were obtained. Nuclear interpretation: Review of images showed that all segments of the myocardium had normal perfusion at rest, and normal perfusion post stress with IV Lexiscan. All segments of the myocardium had normal motion, contraction, and thickening by gated study. T. I D. ratio was normal at 0.95. There is no transient ischemic dilatation of the left ventricle. Computer read rest, and stress left ventricular ejection fraction were 68 %, and 67 %, respectively. Conclusion: 1. There is no scintigraphic evidence of Lexiscan induced myocardial ischemia. 2. There is no scintigraphic evidence of myocardial infarction/scar. Recommendations: Aggressive risk factor modification, and treating the underlying co- morbidities. MTDD
[2018-12-08] MEDS: INSULIN LISPRO 100 UNIT/ML 3 ML VIAL SUBCUT SCH ×2 (01:13→05:54)
[2018-12-08] MEDS ORDERED: INSULIN LISPRO 100 UNIT/ML 3 ML VIAL SUBCUT SCH ×2 (08:00→17:15)
--- NOTE | 2018-12-08 08:52 | EKG REPORT ---
SEVERITY:- ABNORMAL ECG - SINUS RHYTHM LOW VOLTAGE IN FRONTAL LEADS ABNORMAL T, CONSIDER ISCHEMIA, LATERAL LEADS : Confirmed by: Leanna Deluca 08-Dec-2018 08:51:26
--- NOTE | 2018-12-08 08:53 | EKG REPORT ---
SEVERITY:- ABNORMAL ECG - SINUS RHYTHM LOW VOLTAGE IN FRONTAL LEADS NONSPECIFIC T ABNORMALITIES, DIFFUSE LEADS : Confirmed by: Leanna Deluca 08-Dec-2018 08:52:23
[2018-12-08 08:58] VITALS: BP 129/62
[2018-12-08] MEDS ORDERED: LISINOPRIL 5 MG TABLET PO SCH (10:00)
[2018-12-08] MEDS ORDERED: (PENDING PHARMACY ID) (Gabapentin [Neurontin] 300 MG) PO SCH (10:00)
--- NOTE | 2018-12-08 16:45 | PDOC DISCHARGE SUMMARY ---
Impression - Admit/DC Date/PCP Admission Date/Primary Care Provider: 12/06/18 21:[facility] Discharge Date: 12/08/18 - Discharge Diagnosis (1) Atypical chest pain Is this a current diagnosis for this admission?: Yes (2) Diabetes Is this a current diagnosis for this admission?: Yes (3) Dyslipidemia Is this a current diagnosis for this admission?: Yes (4) Fecal impaction Is this a current diagnosis for this admission?: Yes (5) Hypertension Is this a current diagnosis for this admission?: Yes (6) Obesity Is this a current diagnosis for this admission?: Yes - Additional Information Resuscitation Status: Full Code Discharge Diet: Regular Discharge Activity: Activity As Tolerated Referrals: [facility] [Primary Care Provider] - 12/11/18 2:30 pm Prescriptions: Rosuvastatin Calcium [Crestor 20 mg Tablet] 20 mg PO QHS 30 Days #30 tablet Glipizide [Glucotrol] 5 mg PO DAILY 30 Days #30 tab Home Medications: Gabapentin [Neurontin] 300 mg PO BID 12/07/18 Lisinopril [Prinivil 5 mg Tablet] 5 mg PO DAILY 12/07/18 Metformin HCl [Glucophage 500 mg Tablet] 1,000 mg PO BID 12/07/18 Naproxen [Naprosyn] 500 mg PO BID 12/07/18 Glipizide [Glucotrol] 5 mg PO DAILY 30 Days #30 tab 12/08/18 Rosuvastatin Calcium [Crestor 20 mg Tablet] 20 mg PO QHS 30 Days #30 tablet 12/08/18 History of Present Illiness History of Present Illness: RAS REYSE is a 58 year old male with a past medical history of hypertension, diabetes, dyslipidemia and lifestyle and medication noncompliance. He presents with a vague chest and abdominal pain over the last 48, 72 hours. He admits pressure like discomfort of 2 out of 5 intensity occurring a with activity such as walking radiates to the left arm but is associated with abdominal discomfort, polyuria, polydipsia, weight loss and excessive flatule nce. He denies palpitations, shortness of breath, diaphoresis but has some nausea without vomiting. In the emergency room his work-up thus far is unremarkable EKG is unchanged from previous with lateral T wave inversion. His abdomen is distended with without guarding. He denies recent change in medications he denies exacerbating factors he is unable to recall his last bowel movement. Cardiolite stress test within the last 24 months is reportedly unremarkable. He has never checked his blood sugar. Hospital Course Hospital Course: (1) Atypical chest pain Resolved. Most likely noncardiac. Nuclear stress test reported as negative. Troponins x3-, EKG no acute changes. TSH WNL. (2) Diabetes Uncontrolled. Hemoglobin A1c 13%. He was diagnosed recently with diabetes, supposed to take metformin thousand milligrams p.o. twice daily however stating he took it for 2 to 3 days. Received diabetic education. Does not want to initiate insulin. Would like to stay on metformin and try diet and lifestyle modification. Inpatient he was started on diabetic diet, pre-meal insulin, long-acting insulin, sliding scale insulin, hypoglycemic protocol, Accu-Chek. Was discharged on metformin thousand milligrams p.o. twice daily and glipizide 5 mg p.o. daily. (3) Dyslipidemia ASCVD score of 29%. Was discharged on Crestor 20 mg p.o. nightly. Advised on diet lifestyle modification. Was encouraged to follow-up with PCP for reevaluation of his liver chemistries and to 4 weeks. (4) Fecal impaction Resolved. Lactulose and Fleet enema provided. Encouraged on staying hydrated and high-fiber diet. (5) Hypertension Controlled. Takes lisinopril at home. Restarted on lisinopril. Asked to restart home meds upon discharge. (6) Obesity BMI 35. TSH WNL. Diet and lifestyle modification advised. Physical Exam Vital Signs: Temp Pulse Resp BP Pulse Ox 97.3 F 65 18 129/62 H 95 12/08/18 08:56 12/08/18 08:56 12/08/18 08:56 12/08/18 08:56 12/08/18 08:56 Intake & Output 12/07/18 12/08/18 12/09/18 06:59 06:59 06:59 Intake Total 2537 1000 Balance 2537 1000 Weight 101.6 kg 101.6 kg General appearance: PRESENT: no acute distress, obese, well-developed, well- nourished Head exam: PRESENT: atraumatic, normocephalic Eye exam: PRESENT: conjunctiva pink, EOMI, PERRLA. ABSENT: scleral icterus Ear exam: PRESENT: normal external ear exam Mouth exam: PRESENT: moist, tongue midline Neck exam: ABSENT: carotid bruit, JVD, lymphadenopathy, thyromegaly Respiratory exam: PRESENT: clear to auscultation tracy. ABSENT: rales, rhonchi, wheezes Cardiovascular exam: PRESENT: RRR. ABSENT: diastolic murmur, rubs, systolic murmur Pulses: PRESENT: normal dorsalis pedis pul Vascular exam: PRESENT: normal capillary refill GI/Abdominal exam: PRESENT: normal bowel sounds, soft. ABSENT: distended, guarding, mass, organolmegaly, rebound, tenderness Rectal exam: PRESENT: deferred Extremities exam: PRESENT: full ROM. ABSENT: calf tenderness, clubbing, pedal edema Neurological exam: PRESENT: alert, awake, oriented to person, oriented to place, oriented to time, oriented to situation, CN II-XII grossly intact. ABSENT: motor sensory deficit Psychiatric exam: PRESENT: appropriate affect, normal mood. ABSENT: homicidal ideation, suicidal ideation Skin exam: PRESENT: dry, intact, warm. ABSENT: cyanosis, rash Results Laboratory Results: WBC 6.1 10^3/uL (4.0-10.5) 12/06/18 17:52 RBC 4.85 10^6/uL (4.35-5.55) 12/06/18 17:52 Hgb 13.8 g/dL (13.5-17.0) 12/06/18 17:52 Hct 41.8 % (37.9-51.0) 12/06/18 17:52 MCV 86 fl (80-97) 12/06/18 17:52 MCH 28.4 pg (27.0-33.4) 12/06/18 17:52 MCHC 32.9 g/dL (32.0-36.0) 12/06/18 17:52 RDW 12.7 % (11.5-14.0) 12/06/18 17:52 Plt Count 210 10^3/uL (150-450) 12/06/18 17:52 Lymph % (Auto) 16.5 % (13-45) 12/06/18 17:52 [place] % (Auto) 6.5 % (3-13) 12/06/18 17:52 Eos % (Auto) 0.7 % (0-6) 12/06/18 17:52 Baso % (Auto) 0.7 % (0-2) 12/06/18 17:52 Absolute Neuts (auto) 4.6 10^3/uL (1.7-8.2) 12/06/18 17:52 Absolute Lymphs (auto) 1.0 10^3/uL (0.5-4.7) 12/06/18 17:52 Absolute Monos (auto) 0.4 10^3/uL (0.1-1.4) 12/06/18 17:52 Absolute Eos (auto) 0.0 10^3/uL (0.0-0.6) 12/06/18 17:52 Absolute Basos (auto) 0.0 10^3/uL (0.0-0.2) 12/06/18 17:52 Seg Neutrophils % 75.6 % (42-78) 12/06/18 17:52 VBG pH 7.37 (7.30-7.42) 12/06/18 17:52 VBG pCO2 45.8 mmHg (35-63) 12/06/18 17:52 VBG HCO3 25.9 mmol/L (20-32) 12/06/18 17:52 VBG Base Excess 0.2 mmol/L 12/06/18 17:52 Sodium 139.2 mmol/L (137-145) 12/07/18 03:26 Potassium 3.7 mmol/L (3.6-5.0) D 12/07/18 03:26 Chloride 103 mmol/L (98-107) 12/07/18 03:26 Carbon Dioxide 28 mmol/L (22-30) 12/07/18 03:26 Anion Gap 8 (5-19) 12/07/18 03:26 BUN 16 mg/dL (7-20) 12/07/18 03:26 Creatinine 0.73 mg/dL (0.52-1.25) 12/07/18 03:26 Est GFR ( Amer) > 60 (>60) 12/07/18 03:26 Est GFR (MDRD) Non-Af > 60 (>60) 12/07/18 03:26 Glucose 98 mg/dL (75-110) 12/07/18 03:26 POC Glucose 127 mg/dL (70-110) H 12/08/18 05:39 Hemoglobin A1c % 13.7 % (4.7-6.0) H 12/06/18 21:29 Calcium 8.9 mg/dL (8.4-10.2) 12/07/18 03:26 Total Bilirubin 0.3 mg/dL (0.2-1.3) 12/06/18 17:52 Direct Bilirubin 0.2 mg/dL (0.0-0.4) 12/06/18 17:52 Neonat Total Bilirubin Not Reportable 12/06/18 17:52 Neonat Direct Bilirubin Not Reportable 12/06/18 17:52 Neonat Indirect Bili Not Reportable 12/06/18 17:52 AST 25 U/L (17-59) 12/06/18 17:52 ALT 33 U/L (<50) 12/06/18 17:52 Alkaline Phosphatase 107 U/L (38-126) 12/06/18 17:52 Creatine Kinase 365 U/L (55-170) H 12/06/18 17:52 CK-MB (CK-2) 3.52 ng/mL (<4.55) 12/06/18 17:52 Troponin I < 0.012 ng/mL 12/07/18 03:26 Total Protein 7.0 g/dL (6.3-8.2) 12/06/18 17:52 Albumin 4.2 g/dL (3.5-5.0) 12/06/18 17:52 Triglycerides 93 mg/dL (<150) 12/07/18 03:26 Cholesterol 176.95 mg/dL (0-200) 12/07/18 03:26 LDL Cholesterol Direct 124 mg/dL (<100) H 12/07/18 03:26 VLDL Cholesterol 19.0 mg/dL (10-31) 12/07/18 03:26 HDL Cholesterol 37 mg/dL (>40) L 12/07/18 03:26 TSH 0.71 uIU/mL (0.47-4.68) 12/06/18 21:29 12/06/18 12/06/18 12/07/18 17:52 21:29 03:26 CK-MB (CK-2) 3.52 Troponin I < 0.012 < 0.012 < 0.012 Impressions: Chest X-Ray 12/06/18 17:29 IMPRESSION: NO ACUTE FINDINGS. Head CT 12/06/18 17:33 IMPRESSION: NO ACUTE INTRACRANIAL FINDINGS. EVIDENCE OF ACUTE STROKE: NO. Abdomen X-Ray 12/06/18 21:04 IMPRESSION: Possible focal ileus. Gas and stool in the colon. No free air copyright 2010 [email or web address]- All Rights Reserved Stroke Is this a Stroke Patient?: No Acute Heart Failure - Is this a Heart Failure Patient?: No
--- NOTE | 2018-12-08 16:54 | PDOC PROGRESS REPORT ---
Subjective Progress Note for:: 12/07/18 Subjective:: RAS REYES is a 58 year old male with a past medical history of hypertension, diabetes, dyslipidemia and lifestyle and medication noncompliance. He presents with a vague chest and abdominal pain over the last 48, 72 hours. He admits pressure like discomfort of 2 out of 5 intensity occurring a with activity such as walking radiates to the left arm but is associated with abdominal discomfort, polyuria, polydipsia, weight loss and excessive flatulence. He denies palpitations, shortness of breath, diaphoresis but has some nausea without vomiting. In the emergency room his work-up thus far is unremarkable EKG is unchanged from previous with lateral T wave inversion. His abdomen is distended with without guarding. He denies recent change in medications he denies exacerbating factors he is unable to recall his last bowel movement. Cardiolite stress test within the last 24 months is reportedly unremarkable. He has never checked his blood sugar. 12/07/2018. No acute events overnight. Chest pain resolved. Patient had a stress test which was read as negative. Patient could be potentially discharged home today however his blood sugars are not optimized. Denies any fever, chills, nausea, vomiting, diarrhea, constipation or any urinary symptoms. Reason For Visit: CP ABD PAIN HYPERGLYCEMIA DM Physical Exam Vital Signs: Temp Pulse Resp BP Pulse Ox 97.8 F 67 18 96/60 L 100 12/07/18 16:21 12/07/18 16:21 12/07/18 16:21 12/07/18 16:21 12/07/18 16:21 Intake & Output 12/06/18 12/07/18 12/08/18 06:59 06:59 06:59 Intake Total 2537 Balance 2537 Weight 101.6 kg General appearance: PRESENT: obese Head exam: PRESENT: atraumatic, normocephalic Eye exam: PRESENT: conjunctiva pink, EOMI, PERRLA. ABSENT: scleral icterus Ear exam: PRESENT: normal external ear exam Mouth exam: PRESENT: moist, tongue midline Neck exam: ABSENT: carotid bruit, JVD, lymphadenopathy, thyromegaly Respiratory exam: PRESENT: clear to auscultation tracy. ABSENT: rales, rhonchi, wheezes Cardiovascular exam: PRESENT: RRR. ABSENT: diastolic murmur, rubs, systolic murmur Pulses: PRESENT: normal dorsalis pedis pul Vascular exam: PRESENT: normal capillary refill GI/Abdominal exam: PRESENT: normal bowel sounds, soft. ABSENT: distended, guarding, mass, organolmegaly, rebound, tenderness Rectal exam: PRESENT: deferred Extremities exam: PRESENT: full ROM. ABSENT: calf tenderness, clubbing, pedal edema Neurological exam: PRESENT: alert, awake, oriented to person, oriented to place, oriented to time, oriented to situation, CN II-XII grossly intact. ABSENT: motor sensory deficit Psychiatric exam: PRESENT: appropriate affect, normal mood. ABSENT: homicidal ideation, suicidal ideation Skin exam: PRESENT: dry, intact, warm. ABSENT: cyanosis, rash Results Laboratory Results: 12/06/18 17:52 12/07/18 03:26 12/06/18 12/06/18 12/06/18 17:52 17:52 17:52 WBC 6.1 RBC 4.85 Hgb 13.8 Hct 41.8 MCV 86 MCH 28.4 MCHC 32.9 RDW 12.7 Plt Count 210 Seg Neutrophils % 75.6 VBG pH 7.37 VBG pCO2 45.8 VBG HCO3 25.9 VBG Base Excess 0.2 Sodium 130.5 L Potassium 5.1 H Chloride 93 L Carbon Dioxide 26 Anion Gap 12 BUN 19 Creatinine 1.01 Est GFR ( Amer) > 60 Glucose 662 H* Calcium 9.6 Total Bilirubin 0.3 AST 25 Alkaline Phosphatase 107 Total Protein 7.0 Albumin 4.2 TSH 12/06/18 12/07/18 21:29 03:26 WBC RBC Hgb Hct MCV MCH MCHC RDW Plt Count Seg Neutrophils % VBG pH VBG pCO2 VBG HCO3 VBG Base Excess Sodium 139.2 Potassium 3.7 D Chloride 103 Carbon Dioxide 28 Anion Gap 8 BUN 16 Creatinine 0.73 Est GFR ( Amer) > 60 Glucose 98 Calcium 8.9 Total Bilirubin AST Alkaline Phosphatase Total Protein Albumin TSH 0.71 12/06/18 12/06/18 12/06/18 17:52 17:52 21:29 Creatine Kinase 365 H CK-MB (CK-2) 3.52 Troponin I < 0.012 < 0.012 12/07/18 03:26 Creatine Kinase CK-MB (CK-2) Troponin I < 0.012 Impressions: Chest X-Ray 12/06/18 17:29 IMPRESSION: NO ACUTE FINDINGS. Head CT 12/06/18 17:33 IMPRESSION: NO ACUTE INTRACRANIAL FINDINGS. EVIDENCE OF ACUTE STROKE: NO. Abdomen X-Ray 12/06/18 21:04 IMPRESSION: Possible focal ileus. Gas and stool in the colon. No free air copyright 2010 [employer]- All Rights Reserved Assessment and Plan - Diagnosis (1) Atypical chest pain Is this a current diagnosis for this admission?: Yes Plan: Resolved. Nuclear stress test reported as negative. Troponins x3-, EKG no acute changes. TSH WNL. (2) Diabetes Qualifiers: Diabetes mellitus type: type 2 Is this a current diagnosis for this admission?: Yes Plan: Uncontrolled. Hemoglobin A1c 13%. He was diagnosed recently with diabetes, supposed to take metformin thousand milligrams p.o. twice daily however stating he took it for 2 to 3 days. Received diabetic education. Does not want to initiate insulin. Would like to stay on metformin and try diet and lifestyle modification. Continue diabetic diet, pre-meal insulin, long-acting insulin, sliding scale insulin, hypoglycemic protocol, Accu-Chek. (3) Dyslipidemia Is this a current diagnosis for this admission?: Yes Plan: Pending lipid panel. Continue statins. (4) Fecal impaction Is this a current diagnosis for this admission?: Yes Plan: Lactulose and Fleet enema, education for bowel regiment (5) Hypertension Is this a current diagnosis for this admission?: Yes Plan: Controlled. Continue with current regimen (6) Obesity Is this a current diagnosis for this admission?: Yes Plan: TSH WNL. Diet and lifestyle modification advised.
== END 2018-12-08 10:00 | disposition home or self-care (01) ==
LOC: ER 16:54 → EH 21:40 → 4W 12-07 07:57 → 4N 12-07 18:15
PROVIDERS: ADMIT Internal Medicine; ATTEND Internal Medicine
DX: R07.89 Other chest pain (principal); E11.65 Type 2 diabetes mellitus with hyperglycemia; E78.5 Hyperlipidemia, unspecified; K56.41 Fecal impaction; I10 Essential (primary) hypertension; E66.9 Obesity, unspecified; R06.00 Dyspnea, unspecified; R63.4 Abnormal weight loss; R14.3 Flatulence; R20.0 Anesthesia of skin; Z79.899 Other long term (current) drug therapy; Z79.84 Long term (current) use of oral hypoglycemic drugs; Z91.14 Patient's other noncompliance with medication regimen; Z68.35 Body mass index [BMI] 35.0-35.9, adult; Z98.890 Other specified postprocedural states
CPT/HCPCS: 93005; 99285; 96360; 96361; 36415 ×2; 82553; 82962 ×3; 82550; 84443; 85025; 80048; 80053; 84484 ×2; 83036; 82803; 80061; 93017; 74019; 71046; 78452; 70450; 93010; A9500; J2785; J1815 ×4; J3480; J3490 ×2; J7030; J7120; Q9969; G0378

== ENCOUNTER 2019-02-10 16:45 | Emergency (ER) | payer OTHER, BC ==
--- NOTE | 2019-02-10 17:05 | ER Document Report ---
ED Fall - General Chief Complaint: Fall Injury Stated Complaint: FALL/RIGHT ANKLE, FOOT PAIN Time Seen by Provider: 02/10/19 16:59 Primary Care Provider: [facility] [Provider Group] - Follow up as needed [facility] - Follow up as needed Mode of Arrival: Wheelchair Information source: Patient Notes: 58-year-old male presents to ED for pain to the right ankle. He states he was on a ladder that started a fall so he went to jump and still landed on the ladder. He states he has pain lateral aspect of his ankle. He states he had work shoes on at the time. He states he injured his ankle at 630 this morning while he was at work. He went home about 10:00 this morning soaked his foot in Epson salt then he laid down for a while when he woke up his foot was still hurting so he came to the hospital TRAVEL OUTSIDE OF THE [place] IN LAST 30 DAYS: No - HPI Occurred: This morning Where: Work Context: Fell from height - Off a ladder Associated symptoms: None Location of injury/pain: Ankle - Right Quality of pain: Throbbing Severity: Moderate Pain Level: 4 - Related data Allergies/Adverse Reactions: No Known Allergies Allergy (Verified 12/05/17 08:41) Past Medical History - General Information source: Patient - Social History Smoking Status: Never Smoker Frequency of alcohol use: Rare Drug Abuse: None Lives with: Family Family History: COPD, DM, Hyperlipidemia - Past Medical History Cardiac Medical History: Reports: None, Hx Hypertension Pulmonary Medical History: Reports: None EENT Medical History: Reports: None Neurological Medical History: Reports: None Endocrine Medical History: Reports: Hx Diabetes Mellitus Type 2 - recent Renal/ Medical History: Reports: None Malignancy Medical History: Reports None GI Medical History: Reports: None Musculoskeletal Medical History: Reports Hx Musculoskeletal Trauma Skin Medical History: Reports None Psychiatric Medical History: Reports: None Traumatic Medical History: Reports: Hx Fractures - finger Infectious Medical History: Reports: None Past Surgical History: Reports: Hx Umbilical Hernia - Immunizations Hx Diphtheria, Pertussis, Tetanus Vaccination: No Review of Systems - Review of Systems Constitutional: No symptoms reported EENT: No symptoms reported Cardiovascular: No symptoms reported Respiratory: No symptoms reported Gastrointestinal: No symptoms reported Genitourinary: No symptoms reported Male Genitourinary: No symptoms reported Musculoskeletal: Ankle swelling Skin: No symptoms reported Hematologic/Lymphatic: No symptoms reported Neurological/Psychological: No symptoms reported -: Yes All other systems reviewed and negative Physical Exam - Vital signs Vitals: Temp Pulse BP Pulse Ox 98.7 F 65 133/84 H 98 02/10/19 17:01 02/10/19 17:01 02/10/19 17:01 02/10/19 17:01 Interpretation: Normal - General General appearance: Appears well, Alert - HEENT Head: Normocephalic, Atraumatic Eyes: Normal Pupils: PERRL - Respiratory Respiratory status: No respiratory distress Chest status: Nontender Breath sounds: Normal Chest palpation: Normal - Cardiovascular Rhythm: Regular Heart sounds: Normal auscultation Murmur: No - Abdominal Inspection: Normal Distension: No distension Bowel sounds: Normal Tenderness: Nontender Organomegaly: No organomegaly - Back Back: Normal, Nontender - Extremities General upper extremity: Normal inspection, Nontender, Normal color, Normal ROM, Normal temperature General lower extremity: Normal color, Normal temperature. No: Belinda's sign Ankle: Tender, Ecchymosis, Edema. No: Limited ROM Foot: Tender, Edema - Neurological Neuro grossly intact: Yes Cognition: Normal Orientation: AAOx4 Corey Coma Scale Eye Opening: Spontaneous [place] Coma Scale Verbal: Oriented [place] Coma Scale Motor: Obeys Commands [place] Coma Scale Total: 15 Speech: Normal Motor strength normal: LUE, RUE, LLE, RLE Sensory: Normal - Psychological Associated symptoms: Normal affect, Normal mood - Skin Skin Temperature: Warm Skin Moisture: Dry Skin Color: Normal Course - Re-evaluation Re-evalutation: 02/10/19 19:42 X-ray results discussed with patient and written report of x-ray given to patient. Patient was treated with a posterior ankle splint for his tibial fracture. He was also given instructions on crutches. Patient was instructed to follow-up here with his administrative specialist. Patient verbalized understanding and agreement with treatment plan and patient was discharged home - Vital Signs Vital signs: Temp Pulse Resp BP Pulse Ox 98.7 F 65 133/84 H 98 02/10/19 17:01 02/10/19 17:01 02/10/19 17:01 02/10/19 17:01 - Diagnostic Test Radiology reviewed: Image reviewed, Reports reviewed Procedures - Immobilization Right Ankle Immobilizer type: Crutches, Posterior ankle Performed by: PCT Post-Proc Neuro Vasc Exam: Normal Discharge - Discharge Clinical Impression: distal tibial pilon fracture right Disposition: HOME, SELF-CARE Additional Instructions: Fractured Tibia You have a fracture of the tibia, the nickerson bone. The physician has assessed the seriousness of this fracture and has determined that no operation or hospitalization is required. The fracture should heal well, but must be monitored by re-examination and possibly X-rays. The initial treatment of this fracture is immobilization, ice packs, and elevation. A tibial fracture requires protection for about four to eight weeks, depending on the nature of the fracture and the age of the patient. Usually, a long-leg cast is required. Often no weight-bearing can be allowed at first despite casting. This type of fracture sometimes does not heal well. You MUST follow the doctors instructions, and call the doctor if you have any problems. Call the doctor or return at once if pain becomes severe, or if numbness or weakness develops in the foot or toes. Splint Pending Casting Your injury can't be casted until the swelling has subsided. Therefore, a temporary splint has been placed to protect the injury. Full use of an injured area is not possible in a splint. You should follow the doctor's instructions concerning rest, ice, and elevation of the injury. Never do anything which causes pain under the splint. Keep the splint on ALL THE TIME until you return for casting. If there is unexpected severe pain, or numbness, discoloration, or swelling beyond the splint, you should return at once. USE OF CRUTCHES: The doctor has recommended that you not bear weight at this time. You will need to use crutches. Adjust the crutches so the tops come to about two inches under the armpit while you are standing upright. Use your hands -- not your armpits -- to support your weight. To get into a chair, support yourself with one crutch on the injured side. Hold the chair with the other hand, then lower yourself while putting all your weight on the good leg. Going up stairs is `good leg up, step up, then bring up crutches and bad leg.' Down stairs is `bad leg and crutches down, then bring good leg down.' If you develop numbness or swelling in an arm or hand, you are using the crutches incorrectly. Return if you are having any problems with the crutches. ICE & ELEVATION: Apply ice packs frequently against the painful area. Many different schedules are recommended, such as "20 minutes on, 20 minutes off" or "one hour ice, two hours rest." If you need to work, you may need to go longer between ice treatments. You should plan to have the area ice packed AT LEAST one-fourth of the time. The ice should be applied over the wrap, tape, or splint, or over a layer of cloth -- not directly against the skin. Some ice bags have a built-in cloth and can be put directly on the skin. Your injured part should be elevated as much as possible over the next 48 hours. Try to keep the injury above the level of the heart. Avoid use of the injured area. Elevation and rest will decrease the swelling. USE OF [id number]-[id number] IBUPROFEN: Ibuprofen (Advil, Nuprin, Medipren, Motrin IB) is a medication for fever and pain control. In addition, it has anti- inflammatory effects which may be beneficial, especially in the treatment of injuries. It's best to take ibuprofen with food. Persons with ulcer disease or allergy to aspirin should notify their physician of this before taking ibuprofen. Ibuprofen can be given every four to six hours, for a total of four doses daily. Age Pain or fever dose Antiinflammatory dose 6-8 yr 200 mg (1 tab) 200 mg (1 tab) 9-11 yr 200 mg (1 tab) 200-400 mg (1-2 tab) 11-14 yr 200-400 mg (1-2 tab) 400 mg (2 tab) 15-adult 400 mg (2 tab) 600 mg (3 tab) ORAL NARCOTIC MEDICATION: You have been given a prescription for pain control. This medication is a narcotic. It's best taken with food, as nausea can result if taken on an empty stomach. Don't operate machinery or drive within six hours of taking this medication. Do not combine this medicine with alcohol, or with any medication which can cause sedation (such as cold tablets or sleeping pills) unless you get permission from the physician. Narcotics tend to cause constipation. If possible, drink plenty of fluids and eat a diet high in fiber and fruits. Please be aware that prescription narcotics also have the potential for abuse. People become addicted to these medications because of the general sense of wellbeing that they induce. This feeling along with a significant reduction in tension, anxiety, and aggression provides a stimulating seductive quality to these drugs. Once your pain is under control, we encourage you to discard your unused narcotics. FOLLOW-UP CARE: If you have been referred to a physician for follow-up care, call the physicians office for an appointment as you were instructed or within the next two days. If you experience worsening or a significant change in your symptoms, notify the physician immediately or return to the Emergency Department at any time for re-evaluation. Prescriptions: Hydrocodone/Acetaminophen [Nichols 5-325 mg Tablet] 1 tab PO Q6HP PRN #10 tablet PRN Reason: Forms: Elevated Blood Pressure Referrals: [facility]] - Follow up as needed [facility] [Provider Group] - Follow up as needed
[2019-02-10] MEDS ORDERED: IBUPROFEN 800 MG TABLET PO ONE (17:07)
[2019-02-10 17:11] VITALS: BP 133/84
--- NOTE | 2019-02-10 17:38 | RADIOLOGY REPORT (SQ) ---
EXAM DESCRIPTION: ANKLE RIGHT COMPLETE COMPLETED DATE/TIME: 02/10/2019 5:25 pm REASON FOR STUDY: Jumped off letter pain COMPARISON: None. NUMBER OF VIEWS: Three views. TECHNIQUE: AP, lateral, and oblique radiographic images acquired of the right ankle. LIMITATIONS: None. FINDINGS: MINERALIZATION: Normal. BONES: Vertically oriented lucency within the distal tibial metaphysis, which potentially extends to the articular surface. No displaced fracture fragments. JOINTS: Dorsal hind to forefoot degenerative changes. SOFT TISSUES: No soft tissue swelling. No foreign body. OTHER: Calcaneal plantar enthesophyte. IMPRESSION: Suspected nondisplaced distal tibial pilon fracture. TECHNICAL DOCUMENTATION: JOB ID: [id number] [employer]- All Rights Reserved Reading location - IP/workstation name: [email or web address]
== END 2019-02-10 18:57 | disposition home or self-care (01) ==
LOC: ER 16:45
DX: S82.871A Displaced pilon fracture of right tibia, initial encounter for closed fracture (principal); M25.571 Pain in right ankle and joints of right foot; W11.XXXA Fall on and from ladder, initial encounter; Y93.39 Activity, other involving climbing, rappelling and jumping off; Y99.0 Civilian activity done for income or pay; E11.9 Type 2 diabetes mellitus without complications; I10 Essential (primary) hypertension
CPT/HCPCS: 99283

== ENCOUNTER 2019-03-11 03:55 | Emergency (ER) | payer OTHER, BC ==
[2019-03-11] MEDS ORDERED: DIPHENHYDRAMINE HCL 50 MG CAPSULE PO ONE (04:12)
[2019-03-11] MEDS ORDERED: PREDNISONE 20 MG TABLET PO ONE (04:12)
--- NOTE | 2019-03-11 06:59 | ER Document Report ---
ED General - General Chief Complaint: Allergic Reaction Stated Complaint: POSSIBLE ALLERGIC REACTION Time Seen by Provider: 03/11/19 06:13 Primary Care Provider: JUSTIN,TEENA [Primary Care Provider] - Follow up as needed TRAVEL OUTSIDE OF THE [place] IN LAST 30 DAYS: No - HPI Context: Patient presents for concern of urticaria on his torso and neck and top lip swelling approximately midnight last night approximately 7 hours ago after eating cheesy hot Fritos. He did not have any respiratory compromise or tongue swelling. Again the emergency department was provided Benadryl and steroids. He has been observed he is back to baseline. - Related Data Allergies/Adverse Reactions: No Known Allergies Allergy (Verified 12/05/17 08:41) Home Medications: metformin Past Medical History - Social History Smoking Status: Never Smoker Family History: COPD, DM, Hyperlipidemia Patient has suicidal ideation: No Patient has homicidal ideation: No - Past Medical History Cardiac Medical History: Reports: Hx Hypertension Endocrine Medical History: Reports: Hx Diabetes Mellitus Type 2 - recent Musculoskeletal Medical History: Reports Hx Musculoskeletal Trauma Traumatic Medical History: Reports: Hx Fractures - finger Past Surgical History: Reports: Hx Umbilical Hernia. Denies: Hx Pacemaker - Immunizations Hx Diphtheria, Pertussis, Tetanus Vaccination: No Review of Systems - Review of Systems Constitutional: No symptoms reported EENT: No symptoms reported Cardiovascular: No symptoms reported Respiratory: No symptoms reported Gastrointestinal: No symptoms reported Genitourinary: No symptoms reported Male Genitourinary: No symptoms reported Musculoskeletal: No symptoms reported Skin: See HPI Hematologic/Lymphatic: No symptoms reported Neurological/Psychological: No symptoms reported Physical Exam - Vital signs Vitals: Temp Pulse Resp BP Pulse Ox 97.9 F 74 18 127/64 H 98 03/11/19 04:03 03/11/19 04:03 03/11/19 04:03 03/11/19 04:03 03/11/19 04:03 - General General appearance: Appears well, Alert - HEENT Head: Normocephalic, Atraumatic Eyes: Normal Conjunctiva: Normal Cornea: Normal Pupils: PERRL Sinus: Normal Nasal: Normal Mouth/Lips: Normal. No: Angioedema Mucous membranes: Normal Pharynx: Normal Neck: Normal - Respiratory Respiratory status: No respiratory distress Chest status: Nontender Breath sounds: Normal. No: Stridor, Wheezing Chest palpation: Normal - Cardiovascular Rhythm: Regular Heart sounds: Normal auscultation Murmur: No - Skin Skin irregularity: negative: Rash Course - Re-evaluation Re-evalutation: 03/11/19 06:58 Patient no longer has rash on neck or torso no stridor or wheezing good air movement normal vitals. Advised if the symptoms were to happen again to take to Benadryl and seek medical evaluation as needed. No point patient history consistent with anaphylaxis would not provide EpiPen's at this time advised to not eat food that he had around midnight prior to his symptoms. - Vital Signs Vital signs: Temp Pulse Resp BP Pulse Ox 97.9 F 74 18 127/64 H 98 03/11/19 04:03 03/11/19 04:03 03/11/19 04:03 03/11/19 04:03 03/11/19 04:03 Discharge - Discharge Clinical Impression: Acute allergic reaction Qualifiers: Encounter type: initial encounter Qualified Code(s): T78.40XA - Allergy, unspecified, initial encounter Condition: Good Disposition: HOME, SELF-CARE Instructions: Acute Allergic Reaction ([facility]) Additional Instructions: If symptoms recur please take 2 Benadryl 25 mg each. Seek medical reevaluation if symptoms are worsening for any respiratory or breathing compromise Referrals: [facility] [Primary Care Provider] - Follow up as needed
[2019-03-11 08:48] VITALS: BP 112/74
--- NOTE | 2019-03-11 13:18 | EKG REPORT ---
SEVERITY:- ABNORMAL ECG - SINUS RHYTHM PROBABLE LEFT ATRIAL ABNORMALITY NONSPECIFIC T ABNORMALITIES, ANTEROLATERAL LEADS UNCAHNGED FROM : Confirmed by: Hiren Araya MD 11-Mar-2019 13:17:35
== END 2019-03-11 07:30 | disposition home or self-care (01) ==
LOC: ER 03:55
DX: T78.40XA Allergy, unspecified, initial encounter (principal); X58.XXXA Exposure to other specified factors, initial encounter; L50.9 Urticaria, unspecified; I10 Essential (primary) hypertension; E11.9 Type 2 diabetes mellitus without complications; Z79.84 Long term (current) use of oral hypoglycemic drugs
CPT/HCPCS: 93005; 99283; 93010; J7512